=== PATIENT | male | born 1955 | race Caucasian/White ===

== ENCOUNTER 2017-03-11 16:43 | Observation (INO) ==
--- NOTE | 2017-03-11 16:49 | Emergency Department Note ---
Disposition Clinical Impression: Chest pain, History of tobacco use, Abnormal EKG Disposition: Admitted As Inpatient Condition: Fair General Adult HPI - General Stated complaint: Chest Pain Time Seen by Provider: 03/11/17 16:45 - Related Data Home Medications Medication Instructions Recorded Confirmed Amlodipine [Norvasc] 5 mg PO DAILY 11/13/16 03/11/17 Aspirin 81 mg PO DAILY 11/13/16 03/11/17 Lisinopril/Hydrochlorothiazide 1 tab PO DAILY 11/13/16 03/11/17 [Zestoretic 20-12.5 mg Tablet] Metoprolol [Lopressor] 100 mg PO DAILY 11/13/16 03/11/17 SUMAtriptan Succinate [Imitrex] 100 mg PO DAILY PRN 03/11/17 03/11/17 Allergies Allergy/AdvReac Type Severity Reaction Status Date / Time No Known Allergies Allergy Verified 03/11/17 16:47 Past Medical History - Past Medical History Medical history: Reports: hypertension Psychiatric history: Reports: no psych history - Social History Smoking Status: Former smoker Smokeless Tobacco Status: Yes (Vaper) Alcohol use: Reports: occasionally Drug use: Reports: none Course Vital Signs Temperature 98.0 F 03/11/17 16:47 Pulse Rate 69 03/11/17 16:47 Respiratory Rate 16 03/11/17 16:47 Blood Pressure 141/90 03/11/17 16:47 O2 Sat by Pulse Oximetry 97 03/11/17 16:47 Temperature 98.0 F 03/11/17 16:47 Pulse Rate 69 03/11/17 18:32 Respiratory Rate 15 03/11/17 18:42 Blood Pressure 122/84 03/11/17 18:42 O2 Sat by Pulse Oximetry 98 03/11/17 18:32 Oxygen Delivery Oxygen Delivery Room Air Medical Decision Making - Lab Data Result diagrams: 03/11/17 17:01 03/11/17 17:01 Lab Results 03/11/17 03/11/17 03/11/17 Range/Units 17:01 17:01 17:01 WBC 8.4 (4.3-11.1) K/mcL RBC 4.93 (4.19-5.50) M/mcL Hgb 14.3 (12.9-16.9) g/dL Hct 42.6 (37.5-50.1) % MCV 86.4 (83.0-100.0) fL MCH 29.0 (28.0-33.3) pg MCHC 33.6 (31.6-35.5) g/dL RDW 12.6 (11.5-14.5) % Plt Count 258 (140-400) K/mcL MPV 10.1 (9.4-12.4) fL Immature Gran % 0.4 (0-4) % Seg Neutrophils % 71.5 % Lymphocytes % 21.1 % Monocytes % 6.1 % Eosinophils % 0.5 % Basophils % 0.4 % Neutrophils # 6.0 (1.6-8.9) K/mcL Lymphocytes # 1.8 (0.6-4.6) K/mcL Monocytes # 0.5 (0.0-1.3) K/mcL Eosinophils # 0.0 (0.0-0.6) K/mcL Basophils # 0.0 (0.0-0.2) K/mcL PT 10.9 (9.4-12.1) Seconds INR 1.0 APTT 30.2 (26.0-36.0) Seconds D-Dimer 307 (0-500) ng/mLFEU Sodium (136-145) mEq/L Potassium (3.5-4.5) mEq/L Chloride (98-109) mEq/L Carbon Dioxide (19-29) mEq/L BUN (8-26) mg/dL Creatinine (0.72-1.25) mg/dL Est GFR ( Amer) (> 60) Est GFR (Non-Af Amer) (> 60) BUN/Creatinine Ratio (6-26) Glucose (70-99) mg/dL Calculated Osmolality (280-300) Calcium (8.6-10.8) mg/dL Troponin I (0-0.03) ng/mL B-Natriuretic Peptide 77 (0-100) pg/mL 03/11/17 03/11/17 Range/Units 17:01 17:01 WBC (4.3-11.1) K/mcL RBC (4.19-5.50) M/mcL Hgb (12.9-16.9) g/dL Hct (37.5-50.1) % MCV (83.0-100.0) fL MCH (28.0-33.3) pg MCHC (31.6-35.5) g/dL RDW (11.5-14.5) % Plt Count (140-400) K/mcL MPV (9.4-12.4) fL Immature Gran % (0-4) % Seg Neutrophils % % Lymphocytes % % Monocytes % % Eosinophils % % Basophils % % Neutrophils # (1.6-8.9) K/mcL Lymphocytes # (0.6-4.6) K/mcL Monocytes # (0.0-1.3) K/mcL Eosinophils # (0.0-0.6) K/mcL Basophils # (0.0-0.2) K/mcL PT (9.4-12.1) Seconds INR APTT (26.0-36.0) Seconds D-Dimer (0-500) ng/mLFEU Sodium 141 (136-145) mEq/L Potassium 3.5 (3.5-4.5) mEq/L Chloride 105 (98-109) mEq/L Carbon Dioxide 27 (19-29) mEq/L BUN 17 (8-26) mg/dL Creatinine 1.00 (0.72-1.25) mg/dL Est GFR ( Amer) > 60 (> 60) Est GFR (Non-Af Amer) > 60 (> 60) BUN/Creatinine Ratio 17 (6-26) Glucose 98 (70-99) mg/dL Calculated Osmolality 294 (280-300) Calcium 9.5 (8.6-10.8) mg/dL Troponin I 0.00 (0-0.03) ng/mL B-Natriuretic Peptide (0-100) pg/mL Attestation Statement - Attestation Attestation: I examined this patient and my medical decision-making was reviewed with the SITE SUPERVISOR/PA/Advanced Practice Nurse/Resident Physician. I agree with the documented findings, disposition and treatment plan as described except to the extent set forth below. [id number] time provided Patient sent from the urgent care in [place] with 2 weeks of left-sided intermittent chest discomfort. Patient reports pain at the time of my exam. Urgent care ECG reviewed by me. Patient appears in no acute distress on exam
[2017-03-11] MEDS ORDERED: Aspirin 81 MG TAB.CHEW PO ONE (17:03)
--- NOTE | 2017-03-11 17:07 | Emergency Department Note ---
Disposition Clinical Impression: History of tobacco use, Abnormal EKG Chest pain Qualifiers: Chest pain type: unspecified Qualified Code(s): R07.9 - Chest pain, unspecified Disposition: Admitted As Inpatient Condition: Fair Time of Disposition: 17:39 Chest Pain HPI - General Chief Complaint: ED Chest Pain Stated Complaint: Chest Pain Time Seen by Provider: 03/11/17 16:45 Source: patient, family Mode of arrival: ambulatory Limitations: no limitations Vital Signs Reviewed: Yes Nursing Notes Reviewed: Yes - History of Present Illness HPI Narrative: 61-year-old male history of hypertension and tobacco use presents for evaluation of chest pain. Patient notes the chest pain started this morning around 9:00. This is the pain is left-sided without radiation. Notes that the pain is worse with exertion. Pain is also worse with deep breathing. Patient stated he had a stop walking Several flights of stairs due to the dyspnea and chest pain. Patient denies any fevers or cough. Denies a nausea vomiting or diaphoresis. No history of this pain in the past. History of heart attacks. Patient went to urgent care in [place] earlier today and had a chest x-ray and EKG and was told to come to the emergency department for evaluation. Patient states he took aspirin prior to arrival. Pt complaint: chest pain Onset (ago): hour(s) Duration: constant Onset: during rest, during exertion Pain Location: left chest Severity scale (1-10): 5 Quality: sharp Pain Radiation: none - Related Data Home Medications Medication Instructions Recorded Confirmed Amlodipine [Norvasc] 5 mg PO DAILY 11/13/16 03/11/17 Aspirin 81 mg PO DAILY 11/13/16 03/11/17 Lisinopril/Hydrochlorothiazide 1 tab PO DAILY 11/13/16 03/11/17 [Zestoretic 20-12.5 mg Tablet] Metoprolol [Lopressor] 100 mg PO DAILY 11/13/16 03/11/17 SUMAtriptan Succinate [Imitrex] 100 mg PO DAILY PRN 03/11/17 03/11/17 Allergies Allergy/AdvReac Type Severity Reaction Status Date / Time No Known Allergies Allergy Verified 03/11/17 16:47 All systems ED: reviewed and negative except as stated. Constitutional: Reports: as per HPI. Denies: fever Eyes: Reports: as per HPI ENT ED: Reports: as per HPI Cardiovascular: Reports: as per HPI, chest pain Respiratory: Reports: as per HPI, dyspnea. Denies: cough, sputum production Gastrointestinal: Reports: as per HPI. Denies: nausea, vomiting, diarrhea Genitourinary: Reports: as per HPI Musculoskeletal: Reports: as per HPI Integumentary: Reports: as per HPI Neurological: Reports: as per HPI Psychiatric: Reports: as per HPI Endocrine: Reports: as per HPI Chest Pain PMH - Past Medical History Medical history: Reports: hypertension Psychiatric history: Reports: no psych history - Social History Smoking Status: Former smoker Alcohol use: Reports: occasionally Drug use: Reports: none Physical Exam - General Limitations: no limitations General appearance: alert, in no apparent distress - Head Head exam: atraumatic, normocephalic, normal inspection - Eye Eye exam: Present: normal appearance, EOMI - ENT ENT exam: normal exam, mucous membranes moist - Neck Neck exam: Present: normal inspection, trachea midline - Chest Chest inspection: Present: normal inspection, symmetric chest wall rise. Absent : tenderness, rash - Respiratory Respiratory exam: Present: normal lung sounds bilaterally. Absent: respiratory distress - Cardiovascular Cardiovascular exam: Present: regular rate, normal rhythm - Abdominal Exam Abdominal exam: Present: soft, Non-Tender - Extremities Exam Extremities exam: Present: normal inspection. Absent: pedal edema - Neurological Exam Neurological exam: Present: alert, oriented X3 - Skin Skin exam: Present: warm, dry, intact, normal color Course Course Narrative: Patient seen and examined upon arrival. Patient reports chest pain. Patient has no history of any cardiac disease that he is aware of. Patient will get a cardiac evaluation including EKG, lab work including a d-dimer. Patient is low risk [place]. Patient's EKG from earlier today was reviewed. Patient also had chest x-ray from earlier today. Disposition likely admission. - Reevaluation(s) Reevaluation #1: Patient seen and examined. Patient does note some relief after the first dose nitroglycerin. Patient's lab work reviewed. Negative troponin and a unremarkable d-dimer. Time: 17:36 Reevaluation #2: Patient seen and examined. Patient states his pain has resolved. Patient is waiting for bed upstairs. Denies any further needs at this time. Time: 18:32 Vital Signs Temperature 98.0 F 03/11/17 16:47 Pulse Rate 69 03/11/17 16:47 Respiratory Rate 16 03/11/17 16:47 Blood Pressure 141/90 03/11/17 16:47 O2 Sat by Pulse Oximetry 97 03/11/17 16:47 Temperature 98.0 F 03/11/17 16:47 Pulse Rate 63 03/11/17 17:26 Respiratory Rate 16 03/11/17 17:11 Blood Pressure 122/84 03/11/17 17:26 O2 Sat by Pulse Oximetry 98 03/11/17 17:26 Oxygen Delivery Oxygen Delivery Room Air Chest Pain - MDM Narrative Medical decision making narrative: 61-year-old male presents for evaluation of chest pain. Patient does have risk factors and presents with a concerning story. No history of heart attacks in the past. Patient was evaluated initially in urgent care and was instructed to go to the emergency department for evaluation. Patients treated with aspirin and nitroglycerin in the emergency department. She did EKG shows ST depression in the inferior leads. It appears that there is approximately 1 mm depression in 2 and 3-1/2 mm in aVF. These are slightly more pronounced than EKG obtained with photocopy from urgent care earlier today. Patient's pain noted some relief with nitroglycerin. Patient's troponin is negative. Patient's d-dimer is also negative. Patient's heart score is elevated given his risk factors his age and his story. The patient will be admitted for treating troponins and a more thorough cardiac evaluation. This information was discussed with the patient as well as the at bedside. Patient agrees with plan of care. Hospitalist recommends Lovenox 1 mg/kg subcutaneous. - Lab Data Lab results reviewed: Yes I reviewed the patient's lab results. Result diagrams: 03/11/17 17:01 03/11/17 17:01 Lab Results 03/11/17 03/11/17 03/11/17 Range/Units 17:01 17:01 17:01 WBC 8.4 (4.3-11.1) K/mcL RBC 4.93 (4.19-5.50) M/mcL Hgb 14.3 (12.9-16.9) g/dL Hct 42.6 (37.5-50.1) % MCV 86.4 (83.0-100.0) fL MCH 29.0 (28.0-33.3) pg MCHC 33.6 (31.6-35.5) g/dL RDW 12.6 (11.5-14.5) % Plt Count 258 (140-400) K/mcL MPV 10.1 (9.4-12.4) fL Immature Gran % 0.4 (0-4) % Seg Neutrophils % 71.5 % Lymphocytes % 21.1 % Monocytes % 6.1 % Eosinophils % 0.5 % Basophils % 0.4 % Neutrophils # 6.0 (1.6-8.9) K/mcL Lymphocytes # 1.8 (0.6-4.6) K/mcL Monocytes # 0.5 (0.0-1.3) K/mcL Eosinophils # 0.0 (0.0-0.6) K/mcL Basophils # 0.0 (0.0-0.2) K/mcL PT 10.9 (9.4-12.1) Seconds INR 1.0 APTT 30.2 (26.0-36.0) Seconds D-Dimer 307 (0-500) ng/mLFEU Sodium (136-145) mEq/L Potassium (3.5-4.5) mEq/L Chloride (98-109) mEq/L Carbon Dioxide (19-29) mEq/L BUN (8-26) mg/dL Creatinine (0.72-1.25) mg/dL Est GFR ( Amer) (> 60) Est GFR (Non-Af Amer) (> 60) BUN/Creatinine Ratio (6-26) Glucose (70-99) mg/dL Calculated Osmolality (280-300) Calcium (8.6-10.8) mg/dL Troponin I (0-0.03) ng/mL B-Natriuretic Peptide 77 (0-100) pg/mL 03/11/17 03/11/17 Range/Units 17:01 17:01 WBC (4.3-11.1) K/mcL RBC (4.19-5.50) M/mcL Hgb (12.9-16.9) g/dL Hct (37.5-50.1) % MCV (83.0-100.0) fL MCH (28.0-33.3) pg MCHC (31.6-35.5) g/dL RDW (11.5-14.5) % Plt Count (140-400) K/mcL MPV (9.4-12.4) fL Immature Gran % (0-4) % Seg Neutrophils % % Lymphocytes % % Monocytes % % Eosinophils % % Basophils % % Neutrophils # (1.6-8.9) K/mcL Lymphocytes # (0.6-4.6) K/mcL Monocytes # (0.0-1.3) K/mcL Eosinophils # (0.0-0.6) K/mcL Basophils # (0.0-0.2) K/mcL PT (9.4-12.1) Seconds INR APTT (26.0-36.0) Seconds D-Dimer (0-500) ng/mLFEU Sodium 141 (136-145) mEq/L Potassium 3.5 (3.5-4.5) mEq/L Chloride 105 (98-109) mEq/L Carbon Dioxide 27 (19-29) mEq/L BUN 17 (8-26) mg/dL Creatinine 1.00 (0.72-1.25) mg/dL Est GFR ( Amer) > 60 (> 60) Est GFR (Non-Af Amer) > 60 (> 60) BUN/Creatinine Ratio 17 (6-26) Glucose 98 (70-99) mg/dL Calculated Osmolality 294 (280-300) Calcium 9.5 (8.6-10.8) mg/dL Troponin I 0.00 (0-0.03) ng/mL B-Natriuretic Peptide (0-100) pg/mL - Radiology Data Radiology results reviewed: Yes I reviewed the patient's radiology results. Images reviewed from outside facility. Interpretation without the assistance of radiology shows no acute abnormalities. - EKG Data EKG attestation: Yes I reviewed and interpreted this EKG. EKG shows normal: sinus rhythm Rate: normal Rhythm: NSR ST segment depression in: II, III, aVF T wave inversions noted in: v1 QTc: other (386) Interpretation: nonspecific ST-T wave changes, other (ST depression in inferior leads.) Heart Score - Score History: Moderately Suspicious EKG: Significant ST-Depression Age: 45-65 Risk Factors: 1-2 risk factors Troponin: Less than normal limit HEART Score Total: 5 S.B.A.R. - S.B.A.R. Situation: Demographics Background: Presenting Complaint Assessment: Vital Signs, Course and respsone to treatment, Patient/Family Expectation, Pertinant Lab Results Recommendation: Barrier(s) to disposition, Recommendation based on pending studies, treatments, or consults Aminta Report Given to: Dr. Narendra Lemos Repor Time: 17:59
[2017-03-11 17:14] LABS: Basophils % 0.4 %; Eosinophils % 0.5 %; Hematocrit 42.6 % (37.5-50.1); Hemoglobin 14.3 g/dL (12.9-16.9); Immature Granulocytes % 0.4 % (0-4); Lymphocytes # 1.8 K/mcL (0.6-4.6); Lymphocytes % 21.1 %; Mean Corpuscular HGB Conc 33.6 g/dL (31.6-35.5); Mean Corpuscular Volume 86.4 fL (83.0-100.0); Mean Platelet Volume 10.1 fL (9.4-12.4); Monocytes # 0.5 K/mcL (0.0-1.3); Monocytes % 6.1 %; Platelet Count 258 K/mcL (140-400); Red Blood Count 4.93 M/mcL (4.19-5.50); Red Cell Distribution Width 12.6 % (11.5-14.5); Segmented Neutrophils % 71.5 %
[2017-03-11 17:25] LABS: BUN/Creatinine Ratio 17 (6-26); Blood Urea Nitrogen 17 mg/dL (8-26); Calcium 9.5 mg/dL (8.6-10.8); Carbon Dioxide 27 mEq/L (19-29); Chloride 105 mEq/L (98-109); Glucose 98 mg/dL (70-99); Osmolality,Calculated 294 (280-300); Potassium 3.5 mEq/L (3.5-4.5); Sodium 141 mEq/L (136-145); eGFR For African Americans > 60 (> 60); eGFR For Non-African Americans > 60 (> 60)
[2017-03-11] MEDS: Nitroglycerin 0.4 MG TAB.SUBL SL ONE ×2 (17:25→17:35)
[2017-03-11 17:27] LABS: Prothrombin Time 10.9 Seconds (9.4-12.1)
[2017-03-11 17:30] LABS: Activated Partial Thrombo Time 30.2 Seconds (26.0-36.0)
[2017-03-11] MEDS ORDERED: *HR* Morphine 2 MG/ML SYRINGE IVP ONE (17:50)
[2017-03-11] MEDS ORDERED: Ondansetron 4 MG/2 ML VIAL IVP ONE (17:50)
[2017-03-11] MEDS ORDERED: *HR* Enoxaparin 120 MG/0.8 ML SYRINGE SQ STA (17:58)
[2017-03-11] MEDS ORDERED: Acetaminophen 325 MG TABLET PO PRN (19:11)
[2017-03-11] MEDS ORDERED: Naloxone 0.4 MG/ML INJ IVP PRN (19:11)
[2017-03-11] MEDS ORDERED: *HR* Morphine 2 MG/ML SYRINGE IVP PRN (19:11)
[2017-03-11] MEDS ORDERED: *HR* HYDROcodone/Acet 5/325 mg TABLET PO PRN (19:11)
[2017-03-11] MEDS ORDERED: Ondansetron 4 MG/2 ML VIAL IVP PRN (19:11)
--- NOTE | 2017-03-11 19:18 | Internal Med History&Physical ---
Date of Encounter: 03/11/17 Time of Encounter: 19:00 Assessment and Plan (1) Chest pain Current visit: Yes Status: Acute 1 patient experiencing chest pain upon exertion while walking up a flight of stairs. Patient has history of hypertension and nicotine use brother who had an LA at age 56 and . Presently patient is pain-free First cardiac troponin are negative we will continue to cycle cardiac troponin 2. To be some ST depression in II, III, and F aVF we will repeat EKG in a.m. 3 continuous cardiac monitoring 4 lipid profile in a.m. 5 nothing by mouth after midnight-cardiac nuclear stress in a.m.- 6 consult cardiology 7 echocardiogram in a.m. 8 patient initiated on Lovenox 1 mg/kg 9 nitroglycerin as needed for chest pain/or morphine 10 oxygen as needed to maintain SPO2 greater than 92% Qualifiers: Chest pain type: unspecified Qualified Code(s): R07.9 - Chest pain, unspecified (2) History of tobacco use Current visit: Yes Status: Acute 1 patient using Vapor encourage patient to stop smoking offered patient a nicotine patch he declined this time (3) DVT prophylaxis Current visit: Yes Status: Acute Lovenox Internal Medicine - H&P: HPI Chief complaint: CP Admitted From: Emergency Dept Plans for Post Hospital Care: Home History of present illness: Mr. Root is a 61 year old male past medical history of hypertension and nicotine use. According to the patient he has had chest pain which began approximately 2 weeks ago left-sided described as muscle ache which did resolve on own. He had no other episodes until today. 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 He did not have any nausea or diaphoresis but he is extremely short of breath. The pain was worse upon inspiration it would ease with rest. He became concerned and went to urgent care for evaluation. At the urgent care chest x-ray was obtained as well as EKG and was informed to go to the ER for evaluation. Patient did take an aspirin prior to arrival to the ER. According to ER records EKG did shows ST depression in the inferior leads. It appears that there is approximately 1 mm depression in 2 and 3-1/2 mm in aVF, which is slightly more pronounced than EKG obtained with photocopy from urgent care earlier today. First cardiac troponin negative d-dimer is also negative rest of lab work is unremarkable. He was given nitroglycerin which did ease his pain. He has been admitted for further workup and evaluation. Upon assessment patient denies any chest pain or shortness of breath at this time, chest is nontender to palpation. He denies any fevers chills nausea vomiting diarrhea. lungs sounds are clear heart sounds S1 and S2 with no rubs clicks gallops murmurs noted. Patient does have history of hypertension as well as nicotine use and family history, brother of LA at age 56. I reviewed this case with Dr. Valles who agrees with plan Past Med Surg Social Fam HX - Past Medical History Medical history: hypertension Psychiatric history: no psych history - Social History Smoking Status: Former smoker Smokeless Tobacco Status: Yes (Vaper) Alcohol use: occasionally Drug use: none - Family History Mother Living Status: Cause of : Alzheimer's Father Living Status: Cause of : Aneurysm Brother Living Status: Age at : 56 Cause of : LA Internal Medicine - H&P: Meds Amlodipine [Norvasc] 5 mg PO DAILY 11/13/16 [History] Aspirin 81 mg PO DAILY 11/13/16 [History] Lisinopril/Hydrochlorothiazide [Zestoretic 20-12.5 mg Tablet] 1 tab PO DAILY 02/24 [History] Metoprolol [Lopressor] 100 mg PO DAILY 11/13/16 [History] SUMAtriptan Succinate [Imitrex] 100 mg PO DAILY PRN 03/11/17 [History] Allergies No Known Allergies Allergy (Verified 03/11/17 16:47) All Systems PM: A 10-system review of systems was performed and is negative for pertinent findings except as documented above in the HPI. - Constitutional Constitutional: no chills, no fever(s), no night sweats - EENT Nose, mouth and throat: no dysphagia, no nasal discharge, no neck pain, no sore throat - Cardiovascular Cardiovascular ROS IM: chest pain, no diaphoresis, no dyspnea, no lightheadedness, no palpitations, no syncope - Respiratory Respiratory: dyspnea on exertion, pain on inspiration - Gastrointestinal Gastrointestinal: no abdominal pain, no diarrhea, no hematemesis, no hematochezia, no melena, no nausea, no vomiting - Musculoskeletal Musculoskeletal ROS IM: no numbness, no tingling - Integumentary Integumentary IM: no rash, no unusual bruising - Neurological Neurological ROS: no confusion, no convulsions, no focal weakness, no numbness, no tingling, no tremor(s) - Hematologic/Lymphatic Hematologic/Lymphatic: no easy bruising - Constitutional Vitals: Temp Pulse Resp BP Pulse Ox 97.8 F 60 18 148/90 99 03/11/17 18:56 03/11/17 18:56 03/11/17 18:56 03/11/17 18:56 03/11/17 18:56 General appearance: Present: A&O X 3, answers questions appropriately - Head Head exam: Present: atraumatic, normocephalic - Eye Eye exam: Present: PERRL, conjuntiva pink, sclera anicteric Pupils: Present: PERRL - Neck Neck exam general surgery: Present: supple, trachea midline. Absent: lymphadenopathy - Respiratory Respiratory exam: Present: CTAB - Cardiovascular Cardiovascular exam: Present: RRR, +S1, +S2. Absent: diastolic murmur, gallop, rubs, systolic murmur - GI/Abdominal GI/Abdominal exam: Present: normal bowel sounds, soft, no peritoneal signs. Absent: distended, tenderness - Extremities Exam Extremities exam: Present: warm, radial pulses palpable and symetrical. Absent : calf tenderness, cyanotic, pedal edema - Neurological Exam Neurological exam: Present: CN II-XII intact, oriented X3, no focal deficits. Absent: pronater drift, facial droop, speech deficit - Skin Skin exam: Present: dry, intact Internal Med - H&P Results - Labs CBC & Chem 7: 03/11/17 17:01 03/11/17 17:01 - EKG Data EKG shows normal: sinus rhythm - EKG Data Prior EKG available for review: yes EKG comments: 03/11/17 20:[address] Valles some ST depression in 2-3 aVF
[2017-03-11] MEDS ORDERED: SUMAtriptan succinate 50 MG TABLET PO PRN (22:09)
[2017-03-12 05:24] LABS: Basophils % 0.7 %; Eosinophils # 0.1 K/mcL (0.0-0.6); Eosinophils % 0.9 %; Hematocrit 39.5 % (37.5-50.1); Hemoglobin 13.4 g/dL (12.9-16.9); Immature Granulocytes % 0.4 % (0-4); Lymphocytes # 1.9 K/mcL (0.6-4.6); Lymphocytes % 33.2 %; Mean Corpuscular HGB Conc 33.9 g/dL (31.6-35.5); Mean Corpuscular Hemoglobin 29.6 pg (28.0-33.3); Mean Corpuscular Volume 87.2 fL (83.0-100.0); Mean Platelet Volume 10.2 fL (9.4-12.4); Monocytes # 0.4 K/mcL (0.0-1.3); Monocytes % 7.8 %; Neutrophils # 3.2 K/mcL (1.6-8.9); Platelet Count 195 K/mcL (140-400); Red Blood Count 4.53 M/mcL (4.19-5.50); Red Cell Distribution Width 12.7 % (11.5-14.5)
[2017-03-12 05:49] LABS: BUN/Creatinine Ratio 21 (6-26); Blood Urea Nitrogen 19 mg/dL (8-26); Calcium 8.9 mg/dL (8.6-10.8); Carbon Dioxide 26 mEq/L (19-29); Chloride 111 mEq/L (98-109); Chol/HDL Ratio 4.2 (0-4.9); Cholesterol 171 mg/dL (< 200); Glucose 105 mg/dL (70-99); HDL Cholesterol 41 mg/dL (40-59); LDL Cholesterol,Calculated 104 mg/dL (0-99); Osmolality,Calculated 297 (280-300); Potassium 3.8 mEq/L (3.5-4.5); Sodium 142 mEq/L (136-145); Triglycerides 130 mg/dL (< 150); eGFR For African Americans > 60 (> 60); eGFR For Non-African Americans > 60 (> 60)
[2017-03-12] MEDS ORDERED: Regadenoson 0.4 MG/5 ML SYRINGE IVP ONE (06:28)
[2017-03-12] MEDS ORDERED: amLODIPine 5 MG TABLET PO SCH (09:00)
[2017-03-12] MEDS ORDERED: Lisinopril-HCTZ 20-12.5mg TABLET PO SCH (09:00)
[2017-03-12] MEDS ORDERED: Aspirin 81 MG TAB.CHEW PO SCH (09:00)
[2017-03-12] MEDS ORDERED: Metoprolol 100 MG TABLET PO SCH (09:00)
--- NOTE | 2017-03-12 10:16 | ECHO - Doppler Report ---
Echocardiogram Name: Laron Root Date of Study: 03/12/2017 Date: 1955 Ht: 72.0 in Medical Record#: [id number] Age: 61 Wt: 245.0 lb Gender: Male BSA: 2.32 Order #: [id number] Location: [facility] Room #: [id number] Reading Physician: Kunal Cotter DO, MAAME GREGG Traffic Expert: Gabriele Licea RDCS Ordering Physician: Anai Hughes CNP Primary Physician: Nakul Victor DO Indications: Chest pain Impressions: LVEF 60-65%. Normal LV chamber size and function. Mild concentric left ventricular hypertrophy. Moderate left ventricular diastolic dysfunction. Normal right ventricular structure and function. Mild to moderately dilated left atrium. No evidence of pulmonary hypertension. No significant valvular dysfunction. Left Ventricular Wall Motion: Rest Echo Findings All wall segments showed normal motion. Findings: Study Quality * Technically adequate exam. ECG Findings * Sinus bradycardia. Left Ventricle * LVEF 60-65%. * Normal LV chamber size and function. * Mild concentric left ventricular hypertrophy. * Moderate left ventricular diastolic dysfunction. Right Ventricle * Normal right ventricular structure and function. Left Atrium * Mild to moderately dilated left atrium. Right Atrium * Mildly dilated right atrium. Interatrial Septum * No evidence of PFO by color Doppler. Aortic Valve * Trileaflet aortic valve with normal function. * No aortic regurgitation. * No aortic stenosis. Mitral Valve * Normal mitral valve structure and function. * No mitral regurgitation. * No mitral stenosis. Tricuspid Valve * Normal tricuspid valve structure and function. * Trace tricuspid regurgitation. * No evidence of pulmonary hypertension. Pulmonic Valve * Normal pulmonic valve structure and function. * No pulmonic regurgitation. Aorta * Normally sized aortic root. Pericardium * The pericardium appears normal. IVC * Normal IVC dimensions and inspiratory collapse. Pulmonary Artery * Normal visualized portions of the main pulmonary artery. History Hypertension Family History of CAD Measurements: BP: 145/ 91 2D Normal Values RVIDd: 3.03 cm <2.7 cm IVSd: 1.20 cm 0.6 - 1.0 cm LVIDd: 5.56 cm 3.7 - 5.6 cm LVPWd: 1.20 cm 0.6 - 1.1 cm LVIDs: 3.44 cm 1.5 - 3.6 cm AO: 2.90 cm < 4.0 cm LA: 4.00 cm 2.0 - 4.0cm %FS: 38.10 cm >25 % LA volume: 64 Mitral Valve Peak E:.93 m/sec Peak A:.68 m/sec E/A Ratio:1.4 Peak E' Lat Darin:8.16 cm/s Peak E' Med Darin:7.72 cm/s E/E' Lat Ratio:11.3 E/E' Med Ratio:12 Tricuspid Valve TV Regurg Peak Grad: 11.00mmHg TV Regurg Peak Darin: 1.66m/sec Updated by Kunal Cotter DO, MARYSOL, MAAME, NICOLE on 03/12/2017 10:09:25 AM electronically signed on 03/12/2017 10:09:42 AM with status of Final Wall Motion Barth: 1=Normal, 2=Hypokinesis, 3=Akinesis, 4=Dyskinesis, 5=Aneurysmal, 6=Hyperkinetic, X=Not Visualized (Blank)=Missing
--- NOTE | 2017-03-12 11:45 | Nuclear Medicine Stress Report ---
Regadenoson Nuclear Stress Name: Laron Root Date of Study: 03/12/2017 Date: 1955 Ht: 72.0 in Medical Record#: [id number] Age: 61 Wt: 245.0 lb Gender: Male Order #: [id number] Location: [facility] Room: [facility] Supervising Provider: Mich Montiel CNP Reading Physician: Kunal Cotter DO, FACC, FASNC Ordering Physician: Johanna Cooper CNP Primary Care Physician: Nakul Victor DO Stress Technologist: Paul Gillespie, LASERIST, CCT Market Investigator: Emil Blum Indications: Chest Pain Impression: Pharmacologic stress ECG is negative for ischemia at level of heart rate achieved. Gated EF = 61%. Small sized, mild intensity, fixed basal inferolateral defect. Wall motion is normal. These findings are suggestive of artifact. Perfusion imaging was negative for ischemia or infarct. History: Hypertension History of Smoking Stress Test Summary: Stress Test Type: Pharmacologic Regadenoson 0.4mg/5ml given IV Baseline Information: Initial Heart Rate: 54 Blood Pressure: 154/90 Stress Information: Stress Time: 4 min 00 sec Test Terminated Due to (primary): Completed Protocol Maximum Blood Pressure: 154/90 Maximum Heart Rate: 69 Percent Maximum Heart Rate Achieved: 43 Double Product: 10,472 METS Reached: 1 Symptoms: Fluttery feeling Nuclear Summary: SPECT myocardial perfusion imaging using Tc99m Sestamibi given intravenously was performed at rest and following cardiac stress testing. The resting images were obtained following initial dose of 11.5 mCi. Following stress an additional dose of 35.5 mCi was given at peak exercise or 30 seconds post regadenoson infusion. Medication Given: Time Medication Dose Units Route Findings: Stress Note * Resting ECG demonstrated normal sinus rhythm. * No baseline arrhythmias were noted. * Pharmacologic stress ECG is negative for ischemia at level of heart rate achieved. * No arrhythmias were noted during stress. * Patient had no chest pain during stress. * Normal hemodynamic responses to pharmacologic stress. Study Quality * Study quality is average. Gated EF % * Gated EF = 61%. Left Ventricle * The left ventricle is not dilated. LVEDV = 127 mL. * Normal wall motion. Inferior Perfusion Rest * The basal inferolateral segment shows a mild reduction in perfusion. Inferior Perfusion Stress * The basal inferolateral segment shows a mild reduction in perfusion. Updated by Kunal Cotter DO, MARYSOL, NICOLE ISABEL on 03/12/2017 11:38:40 AM electronically signed on 03/12/2017 11:39:43 AM with status of Final
--- NOTE | 2017-03-12 14:25 | Electrocardiograph Report ---
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
[2017-03-12 14:49] VITALS: BP 141/87
--- NOTE | 2017-03-12 15:23 | Discharge Summary ---
Date of Encounter: 03/12/17 Time of Encounter: 14:00 - Discharge Diagnosis (1) Chest pain Priority: Primary Status: Acute Comments: Troponins negative. Chest x-ray negative. Stress test negative. Echocardiogram unremarkable. ACS ruled out. Qualifiers: Chest pain type: unspecified Qualified Code(s): R07.9 - Chest pain, unspecified (2) Acute costochondritis Priority: Primary Status: Suspected (3) Abnormal EKG Priority: Primary Status: Acute (4) Hypertension Priority: Secondary Status: Chronic Comments: Borderline hypertensive at times otherwise controlled with his home medications , follow-up outpatient (5) History of tobacco use Priority: Secondary Status: Chronic Comments: Declined counseling. (6) DVT prophylaxis Priority: Primary Status: Acute Comments: Observation patient. Received a dose of Lovenox while in the emergency department. - Discharge Medications Home Medications: Amlodipine [Norvasc] 5 mg PO DAILY 11/13/16 [History] Aspirin 81 mg PO DAILY 11/13/16 [History] Lisinopril/Hydrochlorothiazide [Zestoretic 20-12.5 mg Tablet] 1 tab PO DAILY 02/24 [History] Metoprolol [Lopressor] 100 mg PO DAILY 11/13/16 [History] SUMAtriptan Succinate [Imitrex] 100 mg PO DAILY PRN 03/11/17 [History] Allergies/Adverse Reactions: Allergies No Known Allergies Allergy (Verified 03/11/17 16:47) Procedures/tests Complete & Pending: Procedures Performed prior 72 hours Category Date Time Status NM meghana perf SPECT multi [NM] Routine Exams 03/11/17 20:30 Taken ECG 12 lead ECG [ECG] AM 0600 Y 03/12/17 06:00 Ordered EV echocardiogram Routine Y 03/12/17 19:16 Completed SP pharm nuclear stress Routine Y 03/12/17 08:00 Completed Date of admission: 03/11/17 18:05 Primary care physician: Nolberto Victor, Discharging clinician: Johanna Cooper Anticipated date of discharge: 03/12/17 - Patient Status Disposition: Home, Self-Care Condition: Fair Functional capacity at discharge: independent ambulation Overall status at discharge: patient is back to baseline - Discharge Instructions Follow Up With: Nolberto Victor DO [Primary Care Provider] - 05/09/17 8:30 am Additional Instructions: Follow-up with primary care provider as scheduled - Diet and Activity Activity: increase activity as tolerated Diet: low fat, low cholesterol, low salt diet Hospital course: Mr. Root is a 61 year old male with past medical history of hypertension and tobacco abuse. Patient presented to the emergency department chief complaint of left-sided chest pain that began 2 weeks prior to presentation. He initially described it as a muscle ache which resolved on its own and did not have subsequent episodes until the day of presentation. Patient stated he walked up 3 flights of stairs which is routine for his daily job but on the day of presentation, he began to experience left-sided chest pain described as sharp , stabbing pain without radiation. Patient denied nausea or diaphoresis but did endorse shortness of breath. Pain was worsened with inspiration and would lessen with rest. Patient presented to an urgent care where a chest x-ray and EKG was reported as unremarkable and the patient was referred to the emergency department. ECG in the emergency department revealing ST depression in the inferior leads. D-dimer negative. Chest x-ray negative. Patient was admitted to the hospitalist service for further evaluation and management. Troponins negative 3. Echocardiogram revealing ejection fraction of 60-65% with moderate diastolic dysfunction. Patient euvolemic on examination and denied pedal edema or shortness of breath above his normal throughout this admission. He had a nuclear stress test is negative for ischemia or infarct. Acute coronary syndrome ruled out. Patient continued to have intermittent bouts of chest pain during this admission. Left-sided chest pain is reproducible with palpation and consistent with musculoskeletal etiology on examination. Regarding further risk factor stratification, patient is on aspirin and beta claudette. Lipid panel normal, no indication to initiate a statin at this time. Recommend lifestyle changes, low-cholesterol diet, smoking cessation. He was discharged home in stable condition with close outpatient follow-up recommended. ITS Impressions Chest X-Ray 03/11/17 19:28 IMPRESSION: No acute process. D/ / Nakul Lazcano MD / Nakul Lazcano MD Interpreting Provider: Nakul Lazcano MD Echocardiogram impressions: LVEF 60-65%. Normal LV chamber size and function. Mild concentric left ventricular hypertrophy. Moderate left ventricular diastolic dysfunction. Normal right ventricular structure and function. Mild to moderately dilated left atrium. No evidence of pulmonary hypertension. No significant valvular dysfunction. Regadenosen nuclear stress test impression: Pharmacologic stress ECG is negative for ischemia at level heart rate achieved. Gated ejection fraction 61% . Small size, mild intensity, fixed basal inferolateral defect. Wall motion is normal. These findings are suggestive of artifact. Perfusion imaging was negative for ischemia or infarct. - Time Spent with Patient Total time spent providing and/or coordinating discharge services: - Constitutional Vitals: Temp Pulse Resp BP Pulse Ox 98.2 F 50 16 141/87 94 03/12/17 14:48 03/12/17 14:48 03/12/17 14:48 03/12/17 14:48 03/12/17 14:48 General appearance: Present: A&O X 3, pleasant, no acute distress, answers questions appropriately - Head Head exam: Present: atraumatic, normocephalic - Eye Eye exam: Present: PERRL, conjuntiva pink, sclera anicteric Pupils: Present: PERRL - Neck Neck exam general surgery: Present: supple, trachea midline. Absent: lymphadenopathy - Respiratory Respiratory exam: Present: chest wall tenderness, decreased breath sounds. Absent: accessory muscle use, rales, respiratory distress, rhonchi, wheezes - Cardiovascular Cardiovascular exam: Present: RRR, +S1, +S2. Absent: diastolic murmur, gallop, rubs, systolic murmur - GI/Abdominal GI/Abdominal exam: Present: normal bowel sounds, soft, no peritoneal signs. Absent: distended, tenderness - Extremities Exam Extremities exam: Present: warm, radial pulses palpable and symetrical. Absent : calf tenderness, cyanotic, pedal edema - Neurological Exam Neurological exam: Present: alert, CN II-XII intact, normal gait, oriented X3, no focal deficits, strengths equal and symetr throughout. Absent: pronater drift, facial droop, speech deficit - Skin Skin exam: Present: dry, intact, normal color, warm
== END 2017-03-12 15:47 | disposition home or self-care (01) ==
LOC: EMEROO 16:43 → 3BNU 16:43
PROVIDERS: ADMIT Hospitalist; ATTEND Nurse Practitioner Family